=== PATIENT | female | born 1930 | race Caucasian/White ===

== ENCOUNTER 2017-09-06 19:28 | Emergency (ER) | payer MEDICARE, OTHER ==
[2017-09-06 19:45] VITALS: BP 121/81
--- NOTE | 2017-09-06 19:59 | UC ---
Cardiac HPI - HPI Summary HPI Summary: 87 yo female presents with complaints of rapid heart rate. She tells me that she has a history of tachycardia, but has been stable for the past 3 years. She saw her trapeze artist yesterday and was told everything looked normal. 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 She monitored her symptoms and when they persisted decided to have a friend bring her to urgent care. Currently she denies fever, chills, SOB, chest pain, headache, dizziness. - History of Current Complaint Chief Complaint: UCGeneralIllness Stated Complaint: RAPID HEART BEAT Time Seen by Provider: 09/06/17 19:30 Hx Obtained From: Patient Onset/Duration: Sudden Onset Current Severity: None Pain Intensity: 0 Character: Fast - Allergy/Home Medications Allergies/Adverse Reactions: Allergies Allergy/AdvReac Type Severity Reaction Status Date / Time atorvastatin [From Lipitor] Allergy Unknown Verified 09/06/17 19:55 Reaction Details clarithromycin [From Biaxin] Allergy Shortness Verified 09/06/17 19:55 of Breath diltiazem Allergy Diarrhea Verified 09/06/17 19:55 ezetimibe [From Zetia] Allergy Tinnitus Verified 09/06/17 19:55 metoprolol Allergy Headache Verified 09/06/17 19:55 PMH/Surg Hx/FS Hx/Imm Hx - Additional Past Medical History Additional PMH: Tachycardia Endocrine History: Dyslipidemia - Surgical History Surgical History: Yes Surgery Procedure, Year, and Place: 1998 & 1999 RIGHT SHOULDER [facility]. 1955 OOPHERECTOMY. 1973 HYSTERECTOMY. 1999 RIGHT MASTOID (TISSUE FROM HER OWN BODY ),. 1999 [place] O.(MASS REMOVED NO OTHER TREATMENTS). 2009 LEFT FOOT [facility]-X2-2012 - Family History Known Family History: Positive: Unknown - Social History Occupation: Retired Lives: With Family Alcohol Use: Rare Alcohol Amount: MAYBE 1-2 DRINKS/MONTH Substance Use Type: None Smoking Status (MU): Never Smoked Tobacco Review of Systems Constitutional: Negative Skin: Negative Respiratory: Negative Cardiovascular: Other - Fast heart rate Gastrointestinal: Negative Neurovascular: Negative Neurological: Negative Psychological: Negative All Other Systems Reviewed And Are Negative: Yes Physical Exam - Summary Physical Exam Summary: GENERAL: NAD. Lying comfortably on stretcher SKIN: No rashes, sores, lesions, or open wounds. NECK: Supple. Nontender. No lymphadenopathy. CHEST: CTAB. No r/r/w. No accessory muscle use. Breathing comfortably and in no distress. CV: Tachycardic. Pulses intact. Brisk cap refill. NEURO: Alert. PSYCH: Age appropriate behavior. Triage Information Reviewed: Yes Vital Signs: Initial Vital Signs Temp 98.8 F 09/06/17 19:41 Pulse 137 09/06/17 19:41 Resp 18 09/06/17 19:41 BP 121/81 09/06/17 19:41 Pulse Ox 100 09/06/17 19:41 - Assessment/Plan Course Of Treatment: EKG reveals juntional rhythm at 138 bpm. No STEMI as read by Dr. Lane. I discussed this with the patient and she has never heard the term "junctional" and is unsure about her ekg/heart other than she has been "tachycardic" in the past. Her last EKG that I am able to view is from 2012 and is NSR. Therefore, I have advised the pt to be further evaluated in the ED. She was agreeable to this, but declined ambulance transfer and her friend with her today will drive her. - Clinical Impression Provider Diagnoses: Junctional tachycardia Discharge - Sign-Out/Discharge Documenting (check all that apply): Discharge/Admit/Transfer - Discharge Plan Condition: Stable Disposition: HOME Referrals: Willa Moore MD [Primary Care Provider] - Additional Instructions: Please go to the ER for further evaluation and treatment of your fast heart rate - Billing Disposition and Condition Condition: STABLE Disposition: Home
== END 2017-09-06 20:05 | disposition home or self-care (01) ==
LOC: UCEAST 19:28
DX: I47.1 Supraventricular tachycardia (principal); E78.5 Hyperlipidemia, unspecified; Z88.8 Allergy status to other drugs, medicaments and biological substances
CPT/HCPCS: 93005; 99212; G0463

== ENCOUNTER 2017-09-06 20:20 | Emergency (ER) | payer MEDICARE, OTHER ==
[2017-09-06] MEDS ORDERED: Flecainide TAB* 100 MG PO ONE (20:52)
[2017-09-06 21:05] VITALS: BP 130/93
--- NOTE | 2017-09-06 21:44 | ED ---
David Nicholas Rebecca, scribed for Augie Belle MD on 09/06/17 at 2048 . Palpitations / Dysrhythmia - HPI Summary HPI Summary: Pt is an 87 y/o F who presents to ED referred from [facility] c/o palpitations characterized as fast. Has had prior similar episodes in the past, though none recently, which typically last ~5 minutes. Her episode today lasted about 4 hours, though upon arrival has resolved. Additionally c/o diaphoresis during the episode. Denies CP, SOB, lightheadedness, fever, cough. Confirms she has been sleeping well recently. While at [facility], she had an EKG which showed SVT at a rate of 138 bpm, though upon arrival her EKG is normal. Hired Help is Dr. Martinez, who she saw yesterday. PMHx paroxysmal SVT for which she is on Flecainide 50 mg which she took today and states that she can take an extra when necessary, but didn't today. PMHx seasonal allergies - received allergy shots 1 week ago, gets them every 2 weeks. - History of Current Complaint Chief Complaint: EDDysrhythmPalp Time Seen by Provider: 09/06/17 20:41 Hx Obtained From: Patient Onset/Duration: Lasting Hours - 4 hours, Resolved Severity Currently: None Character: Fast Associated Signs & Symptoms: Diaphoresis - Allergy/Home Medications Allergies/Adverse Reactions: Allergies Allergy/AdvReac Type Severity Reaction Status Date / Time atorvastatin [From Lipitor] Allergy Unknown Verified 09/06/17 19:55 Reaction Details clarithromycin [From Biaxin] Allergy Shortness Verified 09/06/17 19:55 of Breath diltiazem Allergy Diarrhea Verified 09/06/17 19:55 ezetimibe [From Zetia] Allergy Tinnitus Verified 09/06/17 19:55 metoprolol Allergy Headache Verified 09/06/17 19:55 PMH/Surg Hx/FS Hx/Imm Hx Endocrine/Hematology History: Denies: Hx Diabetes, Hx Thyroid Disease Cardiovascular History: Reports: Other Cardiovascular Problems/Disorders - MITRAL VAVE DISORDER Denies: Hx Hypertension, Hx Pacemaker/ICD Respiratory History: Reports: Other Respiratory Problems/Disorders - ASTHMA A CHILD Denies: Hx Asthma, Hx Chronic Obstructive Pulmonary Disease (COPD) GI History: Denies: Hx Ulcer History: Denies: Hx Renal Disease Musculoskeletal History: Reports: Hx Arthritis - HANDS, FEET, KNEES, Hx Scoliosis - TOLD IN PAST THAT SHE DOES Denies: Hx Rheumatoid Arthritis, Hx Osteoporosis Sensory History: Reports: Hx Cataracts - BILATERAL, HAD SURGERY, Hx Glaucoma Denies: Hx Hearing Aid Opthamlomology History: Reports: Hx Cataracts - BILATERAL, HAD SURGERY, Hx Glaucoma Neurological History: Reports: Hx Migraine - Hx OF, NONE IN YEARS Psychiatric History: Denies: Hx Panic Disorder - Cancer History Hx Chemotherapy: No Hx Radiation Therapy: No - Surgical History Surgery Procedure, Year, and Place: 1998 & 1999 RIGHT SHOULDER [facility]. 195 OOPHERECTOMY. 1973 HYSTERECTOMY. 1999 RIGHT MASTOID (TISSUE FROM HER OWN BODY ),. 1999 [place] O.(MASS REMOVED NO OTHER TREATMENTS). 2009 LEFT FOOT [facility]-X2-2012 Hx Anesthesia Reactions: No Infectious Disease History: No Infectious Disease History: Denies: Hx Hepatitis, Hx Human Immunodeficiency Virus (HIV), Traveled Outside the [place] in Last 30 Days - Family History Known Family History: Positive: Cardiac Disease - Social History Alcohol Use: Rare Alcohol Amount: MAYBE 1-2 DRINKS/MONTH Substance Use Type: Reports: None Smoking Status (MU): Never Smoked Tobacco Review of Systems Positive: Skin Diaphoresis. Negative: Fever Positive: Palpitations - Resolved. Negative: Chest Pain Negative: Shortness Of Breath, Cough Neurological: Other - NEGATIVE: Lightheadedness All Other Systems Reviewed And Are Negative: Yes Physical Exam - Summary Physical Exam Summary: Appearance: Well appearing, no pain distress Skin: warm, dry, reflects adequate perfusion Head/face: normal Eyes: EOMI, LONI ENT: normal Neck: supple, non-tender Respiratory: CTA, breath sounds present Cardiovascular: RRR with very occasional ectopy, PVC noted on monitors, no murmur, pulses symmetrical Abdomen: non-tender, soft Bowel Sounds: present Musculoskeletal: normal, strength/ROM intact Neuro: normal, sensory motor intact, A&Ox3 Triage Information Reviewed: Yes Vital Signs On Initial Exam: Initial Vitals Temp Pulse Resp BP Pulse Ox 98.0 F 87 20 142/84 98 09/06/17 20:21 09/06/17 20:21 09/06/17 20:21 09/06/17 20:21 09/06/17 20:21 Vital Signs Reviewed: Yes Diagnostics - Vital Signs Vital Signs Temp Pulse Resp BP Pulse Ox 09/06/17 20:21 98.0 F 87 20 142/84 98 - Laboratory Lab Statement: Any lab studies that have been ordered have been reviewed, and results considered in the medical decision making process. - EKG 2024 Cardiac Rate: NL - 79 bpm EKG Rhythm: Sinus Rhythm ST Segment: Normal EKG Interpretation: Normal axis, normal interval Course/Dx - Course Course Of Treatment: Patient with a history of SVT that is paroxysmal in nature. Today she had similar but the episode lasted longer than usual. She previously been instructed to take an extra flecainide if this occurred. She did not. I discussed the case with cardiology who wishes for her to have 50 mg of flecainide. She was asymptomatic here and in normal sinus rhythm. There is a very rare PVC noted on monitoring. She was discharged to follow up closely with Dr. Martinez. - Diagnoses Provider Diagnoses: Paroxysmal SVT (supraventricular tachycardia) - Physician Notifications Discussed Care Of Patient With: Russ Barksdale Time Discussed With Above Provider: 20:50 Instructed by Provider To: Other - Recommended she receive 50 of Flecainide and be discharged to follow up with Dr. Martinez. Discharge - Sign-Out/Discharge Documenting (check all that apply): Discharge/Admit/Transfer - Discharge - Discharge Plan Condition: Good Disposition: HOME Patient Education Materials: Supraventricular Tachycardia (ED) Referrals: Fady Martinez MD [Medical Doctor] - Willa Moore MD [Primary Care Provider] - Additional Instructions: Dr. Martinez first thing in the morning to follow-up. Return with chest pain, difficulty breathing, worse or other concerns. - Billing Disposition and Condition Condition: GOOD Disposition: Home The documentation as recorded by the David connor Rebecca accurately reflects the service I personally performed and the decisions made by me, Augie Belle MD.
== END 2017-09-06 21:41 | disposition home or self-care (01) ==
LOC: ED 20:20
DX: I47.1 Supraventricular tachycardia (principal); R61 Generalized hyperhidrosis; Z88.1 Allergy status to other antibiotic agents; Z88.8 Allergy status to other drugs, medicaments and biological substances; I05.9 Rheumatic mitral valve disease, unspecified; Z82.49 Family history of ischemic heart disease and other diseases of the circulatory system; E78.5 Hyperlipidemia, unspecified
CPT/HCPCS: 93005; 99282; A9270-GY

== ENCOUNTER 2020-10-02 00:37 | Observation (INO) ==
[2020-10-02 02:01] LABS: ABS Basophils 0.1 10^3/ul (0-0.2); ABS Eosinophils 0.1 10^3/ul (0-0.6); ABS Lymphocytes 1.6 10^3/ul (1.0-4.8); ABS Monocytes 0.9 10^3/ul (0-0.8); Eosinophil % 0.7 %; Hematocrit 38 % (35-47); Hemoglobin 12.7 g/dL (12.0-16.0); Lymphocyte % 16.8 %; Mean Corpuscular HGB Conc 34 g/dL (31-36); Mean Corpuscular Hemoglobin 31 pg (27-31); Mean Corpuscular Volume 91 fL (80-97); Mean Platelet Volume 7.6 fL (7.4-10.4); Platelet Count 211 10^3/uL (150-450); Red Blood Count 4.14 10^6 /uL (3.70-4.87); Red Cell Distribution Width 14 % (10-15); White Blood Count 9.7 10^3/uL (3.5-10.8)
[2020-10-02 02:18] LABS: Albumin/Globulin Ratio 1.7 (1-3); Calcium 9.2 mg/dL (8.6-10.3); EGFR African American 84.3 (>60); EGFR Non-African American 69.7 (>60); Globulin 2.4 g/dL (2-4); Total Bilirubin 0.5 mg/dL (0.2-1.0); Total Protein 6.4 g/dL (6.4-8.9)
[2020-10-02] MEDS ORDERED: Iohexol 350 (CONTRAST) 500 ML MDV IV ONE (02:22)
[2020-10-02 04:06] LABS: Troponin I 0.01 ng/mL (<0.03)
[2020-10-02] MEDS ORDERED: Heparin DRIP 25,000 UNITS BAG 25,000 UNITS/500 ML BAG IV SCH (05:15)
[2020-10-02 05:34] LABS: ABS Basophils 0.1 10^3/ul (0-0.2); ABS Eosinophils 0.1 10^3/ul (0-0.6); ABS Monocytes 0.8 10^3/ul (0-0.8); ABS Neutrophils 6.3 10^3/ul (1.5-7.7); Eosinophil % 0.9 %; Hematocrit 36 % (35-47); Hemoglobin 12.2 g/dL (12.0-16.0); Lymphocyte % 21.9 %; Mean Corpuscular HGB Conc 34 g/dL (31-36); Mean Corpuscular Hemoglobin 31 pg (27-31); Mean Corpuscular Volume 91 fL (80-97); Mean Platelet Volume 7.4 fL (7.4-10.4); Platelet Count 201 10^3/uL (150-450); Red Blood Count 3.99 10^6 /uL (3.70-4.87); Red Cell Distribution Width 14 % (10-15); White Blood Count 9.2 10^3/uL (3.5-10.8)
[2020-10-02] MEDS ORDERED: Heparin 5000 UNITS/ML 1 mL VIAL IV SCH (06:00)
[2020-10-02 06:53] LABS: EGFR African American 73.4 (>60); EGFR Non-African American 60.6 (>60)
[2020-10-02 12:45] VITALS: BP 122/58
== END 2020-10-02 16:05 | disposition home or self-care (01) ==
LOC: MEDTELE 00:37 → ED 00:37 → MEDTELE 07:27
PROVIDERS: ADMIT Hospitalist; ATTEND Internal Medicine